=== PATIENT | male | born 1995 | race Two or more races ===

== ENCOUNTER 2024-07-30 08:56 | Emergency (ER) | payer OTHER ==
[2024-07-30] MEDS ORDERED: DEXAMETHASONE SODIUM PHOSPHATE 4 MG/ML VIAL IM ONE (10:45)
[2024-07-30] MEDS ORDERED: KETOROLAC TROMETHAMINE 60 MG VIAL IM ONE ×2 (10:45→10:59)
[2024-07-30] MEDS ORDERED: DEXAMETHASONE SODIUM PHOSPHATE 4 MG/ML VIAL ONE (10:59)
[2024-07-30] MEDS ORDERED: IBU600 MG PO (12:20)
== END 2024-07-30 12:32 | disposition home or self-care (01) ==
LOC: ER 08:56
DX: S49.81XA Other specified injuries of right shoulder and upper arm, initial encounter (principal); X58.XXXA Exposure to other specified factors, initial encounter; Y93.89 Activity, other specified; Y92.89 Other specified places as the place of occurrence of the external cause; Y99.8 Other external cause status; M25.511 Pain in right shoulder